=== PATIENT | male | born 1945 | race Caucasian/White ===

== ENCOUNTER → 2018-07-25 | Outpatient (CLI) | payer MEDICARE, OTHER | LOC: M.ULTRA 09:30 | DX: M25.832 Other specified joint disorders, left wrist (principal) ==

== ENCOUNTER → 2019-10-11 | Outpatient (CLI) | payer MEDICARE, OTHER | LOC: M.MRI 08:07 | PROVIDERS: ATTEND Nurse Practitioner Family | DX: M51.27 Other intervertebral disc displacement, lumbosacral region (principal); M48.07 Spinal stenosis, lumbosacral region; M47.817 Spondylosis without myelopathy or radiculopathy, lumbosacral region; N28.1 Cyst of kidney, acquired; M25.78 Osteophyte, vertebrae ==

== ENCOUNTER 2020-01-06 15:47 | Emergency (ER) | payer MEDICARE, OTHER ==
[~2020-01-06] VITALS: Ht 175.3 cm; Wt 74.8 kg
[2020-01-06 15:59] VITALS: BP 105/74
[2020-01-06] MEDS ORDERED: OMEPRAZOLE40 MG PO (16:06)
[2020-01-06] MEDS ORDERED: ALLEGRA ALLERG180 MG PO (16:06)
[2020-01-06] MEDS ORDERED: SINGULAIR 10 MG10 M1 PO (16:06)
[2020-01-06] MEDS ORDERED: RED YEAST RICE600 MG PO (16:07)
[2020-01-06] MEDS ORDERED: SUPER THERAVIT1 EACH PO (16:07)
== END 2020-01-06 17:10 | disposition home or self-care (01) ==
LOC: M.ERS 15:47
DX: S61.412A Laceration without foreign body of left hand, initial encounter (principal); F17.210 Nicotine dependence, cigarettes, uncomplicated; Z88.5 Allergy status to narcotic agent; Z88.8 Allergy status to other drugs, medicaments and biological substances; W26.8XXA Contact with other sharp object(s), not elsewhere classified, initial encounter; Y93.89 Activity, other specified; Y92.89 Other specified places as the place of occurrence of the external cause; Y99.8 Other external cause status

== ENCOUNTER → 2020-04-25 | Outpatient (CLI) | payer MEDICARE, OTHER ==
[~2020-04-25] MED LIST: ALLEGRA ALLERG180 MG PO; OMEPRAZOLE40 MG PO; RED YEAST RICE600 MG PO; SINGULAIR 10 MG10 M1 PO; SUPER THERAVIT1 EACH PO
== END ==
LOC: M.MRI 10:55
PROVIDERS: ATTEND Orthopaedic Surgery
DX: S83.241A Other tear of medial meniscus, current injury, right knee, initial encounter (principal); S83.281A Other tear of lateral meniscus, current injury, right knee, initial encounter; M17.11 Unilateral primary osteoarthritis, right knee; M25.461 Effusion, right knee

== ENCOUNTER → 2020-05-14 | Outpatient (CLI) | payer MEDICARE, OTHER ==
[~2020-05-14] MED LIST changes: +BENTYL 10 MG CA10 M1 PO; +CALCIUM 600 +1 EAC8 PO; +NORCO7.5 PO; +VITAMIN D350 MC3 PO
[2020-05-14 09:56] LABS: URINE BILIRUBIN NEGATIVE (Negative); URINE BLOOD NEGATIVE (Negative); URINE CLARITY CLEAR; URINE COLOR YELLOW; URINE GLUCOSE-RANDOM NEGATIVE (Negative); URINE KETONES NEGATIVE (Negative); URINE LEUKOCYTES-REFLEX NEGATIVE (Negative); URINE NITRITE-REFLEX NEGATIVE (Negative); URINE PROTEIN NEGATIVE (Negative); URINE SPECIFIC GRAVITY 1.025 (1.005-1.030); URINE UROBILINOGEN 0.2 E.U./dl (0.2-1.0)
[2020-05-14 09:59] LABS: PROTIME 10.6 Seconds (9.20-11.50)
[2020-05-14 10:02] LABS: ALBUMIN 3.8 g/dL (3.4-5.0); CALCIUM 8.2 mg/dL (8.5-10.1); CREATININE 1.4 mg/dL (0.6-1.3); POTASSIUM 3.9 mmol/L (3.5-5.1); TOTAL BILIRUBIN 0.5 mg/dL (<0.1-1.0); TOTAL PROTEIN 7.1 g/dL (6.4-8.2)
--- NOTE | 2020-05-14 11:08 | EKG ---
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
== END ==
LOC: M.LAB 09:01
PROVIDERS: ATTEND Orthopaedic Surgery
DX: Z01.812 Encounter for preprocedural laboratory examination (principal); Z20.822 Contact with and (suspected) exposure to COVID-19; M17.11 Unilateral primary osteoarthritis, right knee; I49.9 Cardiac arrhythmia, unspecified

== ENCOUNTER 2020-05-21 05:51 | Inpatient (IN) | payer MEDICARE, OTHER ==
[~2020-05-21] VITALS: Ht 175.3 cm; Wt 74.8 kg
--- NOTE | ~2020-05-21 | OP ---
[facility] [address] [place] [address] OPERATIVE REPORT Name: PEPITO PIMENTEL Room: [address] M.R.#: [id number] Admission: 05/21/20 Attend Phys: Cabrera Shirley Discharge: Date of : 47 Report #: [id number] THIS REPORT FOR: cc: Ashlee Clements MD, Katrina MD ~ Noah Hernández II, DO DATE OF SERVICE: 05/21/2020 PREOPERATIVE DIAGNOSIS: Right knee osteoarthritis. POSTOPERATIVE DIAGNOSIS: Right knee osteoarthritis. PROCEDURE: Right total knee arthroplasty. SURGEON: Noah Hernández II, DO. AUDIT REVIEWER: BHAVIK Lujan. ANESTHESIA: General endotracheal. ESTIMATED BLOOD LOSS: 50 mL. ANTIBIOTICS: Ancef preoperatively. DRAINS: Medium Hemovac. COMPLICATIONS: None. CONDITION OF THE PATIENT: Stable to recovery room. IMPLANTS: Listed in operative record and progress note. BRIEF HISTORY: The patient was seen in preoperative area. Preoperative H and P was performed. Site was marked, questions were answered. Risks and benefits were discussed with the patient about surgery. The patient wished to proceed, assuming all risks. DESCRIPTION OF PROCEDURE: The patient was taken to the operative suite and placed supine on the operating table, given appropriate anesthesia. A well-padded tourniquet was applied to upper thigh, which was inflated to 300 mmHg after gravity exsanguination. The operative knee was sterilely prepped and draped. Surgery began by midline incision. This was carried down to the subcutaneous tissues. A medial parapatellar arthrotomy was performed and carried down to bone. Patella was then everted and excess soft tissue removed from the femur. Femoral cutting block was then applied, checked with drop sukhdev [facility] [address] [place] [address] OPERATIVE REPORT Name: PEPITO PIMENTEL Room: [address] [place] ..#: [id number] Admission: 05/21/20 Attend Phys: Cabrera Shirley Discharge: Date of : 47 Report #: [id number] for rotational alignment, pinned in appropriate position and appropriate cuts were made. A 4-in-1 cutting block was then applied, checked for rotational alignment, pinned in appropriate position and appropriate cuts were made. The tibia was exposed. Excess meniscus was removed. Retractor was placed on collateral ligaments. The tibial cutting block was then applied, pinned in appropriate position, checked with drop sukhdev for rotational alignment and slope and appropriate cut was made. The tibial bone was removed. Tibial base plate was then applied, checked for rotational alignment with the drop sukhdev and pinned in appropriate position. The femur was then applied and box cut was reamed. This was trialed with appropriate spacer, which showed excellent fit and fill and excellent stability of the knee through all range of motion. The patella was reamed in appropriate fashion and sized to appropriate size. Three peg holes were drilled and it was then trialed and showed excellent flexion and extension, excellent tracking of the patella within the groove. These trials were then removed. The tibia was punched in appropriate fashion. Bone ends were cleansed with Pulsavac irrigation and cement was mixed and applied to final implants. These were then malleted into position and held the knee in extension and compressed to allow cement to cure. After it cured, excess was removed using [place] and osteotome. Wound was then copiously irrigated and the final spacer was then malleted into position. Tourniquet was deflated. Hemostasis was obtained with electrocautery. Pain cocktail was injected. PRP gel sprayed throughout the internal aspects of the knee. Medium Hemovac drain was applied. The capsule was closed with 2 FiberWire and 1-0 Vicryl in vcolob-tm-iotha fashion. Skin was closed with 2-0 Vicryl and running 3-0 Monocryl. Dermabond and sterile dressing applied. Griffin wrap and PolarCare applied. The patient transported to recovery room in stable condition. Counts were correct throughout the procedure. By: 1944 99Noah Hernández II, DO /nt
[2020-05-21 09:00] VITALS: BP 122/65
[2020-05-21 14:49] VITALS: BP 124/62
--- NOTE | 2020-05-21 14:59 | NUR ---
PT ADMITTED POST OP SURGERY. PT C/O PAIN, MEDS GIVEN ORDERED. PT ORIENTED TO ROOM. CAPNO IN PLACE. FAMILY AT BEDSIDE.
--- NOTE | 2020-05-21 17:27 | NUR ---
PT REMAINED ALERT AND ORIENTED. PT RESTING IN BED. PT WALKED IN HALLWAYS PER PATIENT REQUEST. PAIN MEDS GIVEN ORDERED. EDUCATION GIVEN PER NEW EQUIPMENT, PLAN OF CARE, AND DRAINS. CAPNO IN PLACE. FALL RISK PRECAUTIONS IN PLACE. HOURLY ROUNDING COMPLETED.
[2020-05-21 20:39] VITALS: BP 122/62
[2020-05-22 00:16] VITALS: BP 122/66
[2020-05-22 04:42] VITALS: BP 118/60
--- NOTE | 2020-05-22 05:03 | NUR ---
PT SOMEWHAT ANXIOIUS ABOUT PAIN MEDS HERE VS HOME MEDS THAT HE TAKES FOR PAIN. HE HAS DONE WELL WITH HYDROCODONE 7.5/325 NEEDED. HE HAS USED CPM ONCE AT NIGHT. 2L-O2 WITH CAPNO. CHEST XRAY CLEAR FROM SUSPECTED ASPIRATION ISSUES. HE IS ALERT AND ORIENTED. USES URINAL BUT STATES HE IS READY TO GET UP AND WALK AND WORK WITH THERAPY AND GET HOME.
[2020-05-22 05:48] LABS: HEMATOCRIT 30.1 % (42.0-52.0); HEMOGLOBIN 10.1 gm/dL (14.0-18.0); MCH 31.1 pg (26.0-34.0); MCHC 33.6 g/dL (28.0-37.0); MCV 92.6 fL (80.0-100.0); MPV 8.2 fl. (7.2-11.1); RBC 3.25 mil/uL (4.50-6.00); RDW-CV 13.9 % (10.5-14.5); WBC 11.2 thou/uL (4.0-11.0)
[2020-05-22 06:07] LABS: CALCIUM 7.8 mg/dL (8.5-10.1); CREATININE 1.2 mg/dL (0.6-1.3); POTASSIUM 3.5 mmol/L (3.5-5.1); TOTAL BILIRUBIN 0.4 mg/dL (<0.1-1.0); TOTAL PROTEIN 5.6 g/dL (6.4-8.2)
[2020-05-22 08:00] VITALS: BP 120/59
[2020-05-22 08:16] VITALS: BP 118/60
--- NOTE | 2020-05-22 09:45 | NUR ---
RECIEVED O.T. ORDERS. WILL DEFER TO P.T. AT THIS TIME. PLEASE ORDER FURTHER O.T. SERVICES IF NEEDED.
[2020-05-22] MEDS ORDERED: XARELTO10 MG PO (10:15)
--- NOTE | 2020-05-22 11:26 | NUR ---
PT DISCHARGED HOME WITH ALL BELONGINGS ACCOMAPNIED BY . PT DENIED PAIN ON DISCHARGE. SALE LOCK REMOVED HUB INTACT. PT LEFT PER WHEELCHAIR.
--- NOTE | 2020-05-22 12:53 | NUR ---
Pt discharged to home today with outpt PT. CM faxed orders to [facility] [phone]. Pt resides at home with his . Independent. Pt has a walker and cane that he can use for mobility. No hx of HH or SNF. 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
--- NOTE | 2020-05-22 13:50 | NUR ---
CM asked [facility] to call in Pt's blood thinner if needed, RN to check and see if it needs to be called in or if it's already been called in.
== END 2020-05-22 11:15 | disposition home or self-care (01) | DRG 469 ==
LOC: M.PRE → M.3W 08:43 → M.TBA 08:43 → M.PRE 10:18 → M.3W 14:05
PROVIDERS: Internal Medicine; Orthopaedic Surgery; ADMIT Internal Medicine; ATTEND Internal Medicine
PROC: 0SRC0J9 Replacement of Right Knee Joint with Synthetic Substitute, Cemented, Open Approach (ICD-10-PCS; principal; 2020-05-21)
PROC: 3E0T3BZ Introduction of Anesthetic Agent into Peripheral Nerves and Plexi, Percutaneous Approach (ICD-10-PCS; 2020-05-21)
DX: M17.11 Unilateral primary osteoarthritis, right knee (principal); J96.01 Acute respiratory failure with hypoxia; F43.10 Post-traumatic stress disorder, unspecified; E78.5 Hyperlipidemia, unspecified; K21.9 Gastro-esophageal reflux disease without esophagitis; Z88.5 Allergy status to narcotic agent; Z88.8 Allergy status to other drugs, medicaments and biological substances; Z98.42 Cataract extraction status, left eye; Z98.41 Cataract extraction status, right eye

== ENCOUNTER → 2020-07-12 | Outpatient (CLI) | payer MEDICARE, OTHER ==
[~2020-07-12] MED LIST changes: +XARELTO10 MG PO
== END ==
LOC: M.MRI 14:30
DX: M51.16 Intervertebral disc disorders with radiculopathy, lumbar region (principal); M25.78 Osteophyte, vertebrae; M47.27 Other spondylosis with radiculopathy, lumbosacral region; M48.07 Spinal stenosis, lumbosacral region; Z98.890 Other specified postprocedural states

== ENCOUNTER → 2020-12-05 | Outpatient (CLI) | payer MEDICARE, OTHER | LOC: M.CT 12:31 | PROVIDERS: ATTEND Nurse Practitioner Family | DX: J84.10 Pulmonary fibrosis, unspecified (principal); I25.10 Atherosclerotic heart disease of native coronary artery without angina pectoris; I70.0 Atherosclerosis of aorta; K76.9 Liver disease, unspecified; M47.814 Spondylosis without myelopathy or radiculopathy, thoracic region; Z72.0 Tobacco use ==

== ENCOUNTER → 2020-12-12 | Outpatient (CLI) | payer MEDICARE, OTHER | LOC: M.CT 08:48 | PROVIDERS: ATTEND Nurse Practitioner Family | DX: N28.1 Cyst of kidney, acquired (principal); K76.9 Liver disease, unspecified; R63.4 Abnormal weight loss ==

== ENCOUNTER 2021-02-18 15:15 | Emergency (ER) | payer MEDICARE, OTHER ==
[~2021-02-18] VITALS: Ht 175.3 cm; Wt 72.1 kg
[2021-02-18 15:45] VITALS: BP 113/52
[2021-02-18] MEDS ORDERED: NEURONTIN 300M300 M2 PO (15:54)
[2021-02-18 16:15] LABS: INFLUENZA A ANTIGEN Negative (Negative); INFLUENZA B ANTIGEN Negative (Negative)
[2021-02-18] MEDS ORDERED: ZOFRAN ODT4 MG PO (16:41)
[2021-02-18] MEDS ORDERED: TESSALON PERLE100 MG PO (16:41)
== END 2021-02-18 16:52 | disposition home or self-care (01) ==
LOC: M.ERS 15:15
PROVIDERS: Nurse Practitioner Family
DX: R53.83 Other fatigue (principal); Z20.822 Contact with and (suspected) exposure to COVID-19; R05.9 Cough, unspecified; F17.200 Nicotine dependence, unspecified, uncomplicated; Z98.890 Other specified postprocedural states; Z90.49 Acquired absence of other specified parts of digestive tract; Z79.891 Long term (current) use of opiate analgesic; Z79.899 Other long term (current) drug therapy; Z79.1 Long term (current) use of non-steroidal anti-inflammatories (NSAID); Z88.5 Allergy status to narcotic agent; Z88.8 Allergy status to other drugs, medicaments and biological substances